=== PATIENT | male | born 1940 | race Caucasian/White ===

== ENCOUNTER 2016-08-01 09:30 | Day surgery (SDC) | payer MEDICARE ==
--- NOTE | ~2016-08-01 | EGD ---
EGD REPORT [facility] [address] [address] NAME: JOHAN TURNER : [birth year] STATUS : REG [facility]#: [id number] AGE: 75 ADM/REG DATE : 08/01/16 MR#: [id number] REPORT SERV DATE: 08/01/16 DICTATED BY: JOS DELA CRUZ DATE: 08/01/16 REPORT STATUS : Draft [facility]ED [facility]: [facility] DATE: 08/01/16 Endoscopy Center Patient Name: Johan Turner Date of : 1940 Attending MD: JOS DELA CRUZ MD Procedure Date No Time: 08/01/2016 Procedure: Upper GI endoscopy Indications: Abdominal pain in the right upper quadrant, Suspected esophageal reflux Referring MD: Lucho Adhikari MD Medicines: Monitored Anesthesia Care Complications: No immediate complications. Procedure: Pre-Anesthesia Assessment: - ASA Grade Assessment: III - A patient with severe systemic disease. After obtaining informed consent, the endoscope was passed under direct vision. Throughout the procedure, the patient's blood pressure, pulse, and oxygen saturations were monitored continuously. The GIF [id number] was introduced through the mouth, and advanced to the second part of duodenum. The upper GI endoscopy was accomplished without difficulty. The patient tolerated the procedure well. Findings: The Z-line was irregular and was found at the gastroesophageal junction. Biopsies were taken with a cold forceps for histology. A small hiatus hernia was present. A single 5 mm sessile polyp with no stigmata of recent bleeding was found in the gastric body. The polyp was removed with a cold biopsy forceps. Resection and retrieval were complete. Localized mildly erythematous mucosa without bleeding was found in the gastric antrum. Biopsies were taken with a cold forceps for histology. The duodenal bulb and 2nd part of the duodenum were normal. The cardia and gastric fundus were normal on retroflexion. A small diverticulum was found in the second part of the duodenum. Impression: - Z-line irregular, at the gastroesophageal junction. Biopsied. - Hiatus hernia. - A single gastric polyp. Resected and retrieved. - Erythematous mucosa in the antrum. Biopsied. - Normal duodenal bulb and 2nd part of the duodenum. Recommendation: - Await pathology results. EGD REPORT [address] [place]. [address] NAME: JOHAN TURNER : [birth year] STATUS : REG [facility] [place] PAT#: [id number] AGE: 75 ADM/REG DATE : 08/01/16 MR#: [id number] REPORT SERV DATE: 08/01/16 DICTATED BY: JOS DELA CRUZ DATE: 08/01/16 REPORT STATUS : Draft TRANSCRIBED BY: [employer] DATE: 08/01/16 - Follow an antireflux regimen. Procedure Code(s): --- Professional --- 95310, Esophagogastroduodenoscopy, flexible, transoral; with biopsy, single or multiple Diagnosis Code(s): --- Professional --- K22.8, Other specified diseases of esophagus K44.9, Diaphragmatic hernia without obstruction or gangrene K31.7, Polyp of stomach and duodenum K31.9, Disease of stomach and duodenum, unspecified R10.11, Right upper quadrant pain CPT copyright 2013 [employer]. All rights reserved. The codes documented in this report are preliminary and upon counter cutter review may be revised to meet current compliance requirements. JOS DELA CRUZ MD 08/01/2016 11:36 AM This report has been signed electronically. Number of Addenda: 0 Note Initiated On: 08/01/2016 11:19 AM Scope Withdrawal Time 0 hours 0 minutes 0 seconds [id number] [id number]
--- NOTE | ~2016-08-01 | EGD ---
EGD REPORT [facility] [address] [address] NAME: JOHAN TURNER : 44 STATUS : REG [facility]#: [id number] AGE: 75 ADM/REG DATE : 08/01/16 MR#: [id number] REPORT SERV DATE: 08/01/16 DICTATED BY: JOS DELA CRUZ DATE: 08/01/16 REPORT STATUS : Draft TRANSCRIBED BY: [facility] DATE: 08/01/16 Endoscopy Center Patient Name: Johan Turner Date of : 1940 Attending MD: JOS DELA CRUZ MD Procedure Date No Time: 08/01/2016 Procedure: Colonoscopy Indications: Screening in patient at increased risk: Family history of 1st-degree relative with colorectal cancer Referring MD: Lucho Adhikari MD Medicines: Monitored Anesthesia Care Complications: No immediate complications. Procedure: Pre-Anesthesia Assessment: - ASA Grade Assessment: III - A patient with severe systemic disease. After I obtained informed consent, the scope was passed under direct vision. Throughout the procedure, the patient's blood pressure, pulse, and oxygen saturations were monitored continuously. The [id number] was introduced through the anus and advanced to the cecum, identified by appendiceal orifice and ileocecal valve. The colonoscopy was performed with moderate difficulty due to significant looping. Successful completion of the procedure was aided by applying abdominal pressure. The patient tolerated the procedure well. The quality of the bowel preparation was fair. Findings: The digital rectal exam was normal. Pertinent negatives include no palpable rectal lesions. Hemorrhoids were found during retroflexion and were moderate. Impression: - Hemorrhoids. Recommendation: - Patient has a contact number available for emergencies. The signs and symptoms of potential delayed complications were discussed with the patient. Return to normal activities tomorrow. Written discharge instructions were provided to the patient. - Regular diet. - Continue present medications. - Return to GI clinic PRN. Procedure Code(s): --- Professional --- 19197, Colonoscopy, flexible, proximal to splenic EGD REPORT [facility] [address] [place] [address] [place] [address] NAME: JOHAN TURNER : 44 STATUS : REG [facility] [place] PAT#: [id number] AGE: 75 ADM/REG DATE : 08/01/16 MR#: [id number] REPORT SERV DATE: 08/01/16 DICTATED BY: JOS DELA CRUZ DATE: 08/01/16 REPORT STATUS : Draft TRANSCRIBED BY: [employer] DATE: 08/01/16 flexure; diagnostic, with or without collection of specimen(s) by brushing or washing, with or without colon decompression (separate procedure) Diagnosis Code(s): --- Professional --- K64.9, Unspecified hemorrhoids Z12.11, Encounter for screening for malignant neoplasm of colon Z80.0, Family history of malignant neoplasm of digestive organs CPT copyright 2013 [employer]. All rights reserved. The codes documented in this report are preliminary and upon sec accountant review may be revised to meet current compliance requirements. JOS DELA CRUZ MD 08/01/2016 11:56 AM This report has been signed electronically. Number of Addenda: 0 Note Initiated On: 08/01/2016 11:15 AM Scope Withdrawal Time 0 hours 7 minutes 38 seconds [id number] [place] [id number]
== END 2016-08-01 23:59 | disposition home or self-care (01) ==
LOC: DMU 09:30
PROVIDERS: Internal Medicine Gastroenterology
PROC: 0DB48ZX Excision of Esophagogastric Junction, Via Natural or Artificial Opening Endoscopic, Diagnostic (ICD-10-PCS; 2016-08-01)
PROC: 0DJD8ZZ Inspection of Lower Intestinal Tract, Via Natural or Artificial Opening Endoscopic (ICD-10-PCS; principal; 2016-08-01 11:00)
PROC: 0DB68ZX Excision of Stomach, Via Natural or Artificial Opening Endoscopic, Diagnostic (ICD-10-PCS; 2016-08-01 11:00)
DX: Z12.11 Encounter for screening for malignant neoplasm of colon (principal); K64.9 Unspecified hemorrhoids; K29.70 Gastritis, unspecified, without bleeding; K31.7 Polyp of stomach and duodenum; K44.9 Diaphragmatic hernia without obstruction or gangrene; K22.8 Other specified diseases of esophagus; N20.0 Calculus of kidney; Z80.0 Family history of malignant neoplasm of digestive organs
CPT/HCPCS: 43239; G0105; 88305